=== PATIENT | female | born 1945 | race Two or more races ===

== ENCOUNTER 2017-12-22 09:23 | Emergency (ER) | payer OTHER ==
[~2017-12-22] VITALS: Ht 149.9 cm; Wt 65.8 kg
[~2017-12-22 09:23] MED LIST: AMBIEN10 MG PO; METOPROLOL SUCC50 MG PO; NORFLEX100 MG PO; NORVASC5 MG PO; PROTONIX40 MG PO; SYNTHROID50 MCG PO; TOPROL XL25 MG PO; XANAX2 MG PO; ZANTAC300 MG PO; ZOLOFT50 MG PO
== END 2017-12-22 13:12 | disposition home or self-care (01) ==
LOC: ER 09:23
DX: K52.89 Other specified noninfective gastroenteritis and colitis (principal)

== ENCOUNTER 2018-01-08 07:42 | Outpatient (CLI) | payer OTHER | END 2018-01-08 07:45 | disposition home or self-care (01) | LOC: SONOGRAMA 07:42 → RAD 07:42 | DX: R10.84 Generalized abdominal pain (principal) ==

== ENCOUNTER 2018-09-03 08:58 | Outpatient (CLI) | payer OTHER | END 2018-09-03 09:00 | disposition home or self-care (01) | LOC: NUCLEAR 08:58 | DX: M25.561 Pain in right knee (principal); Z96.651 Presence of right artificial knee joint | CPT/HCPCS: 78315; 78802; A9503; A9556 ==

== ENCOUNTER 2018-10-16 07:04 | Outpatient (CLI) | payer OTHER | END 2018-10-16 07:17 | disposition home or self-care (01) | LOC: LAB 07:04 | DX: I49.8 Other specified cardiac arrhythmias (principal); D64.89 Other specified anemias; E88.89 Other specified metabolic disorders; D68.8 Other specified coagulation defects; N39.0 Urinary tract infection, site not specified; Z22.322 Carrier or suspected carrier of Methicillin resistant Staphylococcus aureus; Z76.89 Persons encountering health services in other specified circumstances ==

== ENCOUNTER 2018-11-03 05:55 | Inpatient (IN) | payer OTHER ==
[~2018-11-03] VITALS: Ht 154.9 cm; Wt 68.9 kg
[~2018-11-03 05:55] MED LIST changes: +TOPROL XL100 M1; +TRADJENTA5 MG
== END 2018-11-06 13:30 | DRG 470 ==
LOC: SURH 05:55 → O/R 05:55 → SURH 16:06
PROVIDERS: ADMIT Orthopaedic Surgery
PROC: 0SRD0J9 Replacement of Left Knee Joint with Synthetic Substitute, Cemented, Open Approach (ICD-10-PCS; principal; 2018-11-03 07:00)
DX: M17.12 Unilateral primary osteoarthritis, left knee (principal)

== ENCOUNTER 2018-11-24 23:59 | Emergency (ER) | payer OTHER ==
[~2018-11-24] VITALS: Ht 165.1 cm; Wt 72.1 kg
== END 2018-11-25 10:43 | disposition home or self-care (01) ==
LOC: ER 23:59 → CPU-OBS 11-25 00:02 → ER 11-25 10:43
DX: R07.89 Other chest pain (principal); I16.0 Hypertensive urgency; I10 Essential (primary) hypertension

== ENCOUNTER 2019-08-02 17:47 | Emergency (ER) | payer OTHER ==
[~2019-08-02] VITALS: Ht 152.4 cm; Wt 68.0 kg
[2019-08-02] MEDS ORDERED: CALAN SR120 MG (18:15)
[2019-08-02] MEDS ORDERED: SYNTHROID100 MCG (18:16)
[2019-08-02] MEDS ORDERED: DIOVAN320 MG (18:16)
[2019-08-02] MEDS ORDERED: ZOLOFT50 MG (18:17)
[2019-08-02] MEDS ORDERED: MONTELUKAST SODI4 M1 (18:17)
== END 2019-08-02 21:31 | disposition home or self-care (01) ==
LOC: ER 17:47
DX: R42 Dizziness and giddiness (principal)

== ENCOUNTER 2019-11-19 07:29 | Outpatient (CLI) | payer OTHER ==
[~2019-11-19 07:29] MED LIST changes: +CALAN SR120 MG; +DIOVAN320 MG; +MONTELUKAST SODI4 M1; +SYNTHROID100 MCG; +ZOLOFT50 MG
== END 2019-11-19 07:40 | disposition home or self-care (01) ==
LOC: NUCLEAR 07:29
PROVIDERS: ATTEND Internal Medicine Cardiovascular Disease
DX: R07.89 Other chest pain (principal)
CPT/HCPCS: 78452; 93017; A9500; J0153

== ENCOUNTER 2019-12-17 08:58 | Outpatient (CLI) | payer OTHER | END 2019-12-17 09:04 | disposition home or self-care (01) | LOC: SONOGRAMA 08:58 | PROVIDERS: ATTEND Pathology Anatomic Pathology | DX: E04.2 Nontoxic multinodular goiter (principal) ==

== ENCOUNTER 2019-12-26 14:57 | Emergency (ER) | payer OTHER ==
[~2019-12-26] VITALS: Ht 147.3 cm; Wt 72.6 kg
== END 2019-12-26 19:27 | disposition home or self-care (01) ==
LOC: ER 14:57
DX: K20.9 Esophagitis, unspecified (principal); K29.70 Gastritis, unspecified, without bleeding

== ENCOUNTER 2020-01-18 07:13 | Outpatient (CLI) | payer OTHER | END 2020-01-18 07:19 | disposition home or self-care (01) | LOC: NUCLEAR 07:13 | PROVIDERS: ATTEND Internal Medicine Gastroenterology | DX: K31.84 Gastroparesis (principal) | CPT/HCPCS: 78262; A9541 ==